=== PATIENT | male | born 1990 | race Caucasian/White ===

== ENCOUNTER 2019-01-17 17:49 | Emergency (ER) | payer SELFPAY ==
[2019-01-17 18:45] LABS: Urine Blood NEGATIVE (NEG); Urine Glucose NEGATIVE (NEG); Urine Protein 1+ (NEG)
[2019-01-17 19:19] LABS: Absolute Lymphocytes (CBC) 1.7 K/uL (0.7-4.9); Basophils % 0.3 % (0-1.3); Eosinophils % 0.5 % (0-4.4); Hematocrit 43.4 % (39.6-49.0); Lymphocytes % 17.4 % (15.3-44.8); MPV 9.4 fL (7.6-11.3); Monocytes % 6.7 % (3.3-12.3); RBC Red Blood Cell Count 4.65 M/uL (4.33-5.43)
[2019-01-17] MEDS ORDERED: NA CHLORIDE 0.9% 1,000 ML ONE (19:38)
[2019-01-17] MEDS ORDERED: MORPHINE 4 MG/ML SYR ONE (19:38)
[2019-01-17] MEDS ORDERED: ONDANSETRON 4 MG/2 ML VIAL ONE (19:38)
[2019-01-17 19:43] LABS: ALT/SGPT 30 U/L (12-78); AST/SGOT 19 U/L (15-37); Alkaline Phosphatase 86 U/L (45-117); BUN Blood Urea Nitrogen 15 mg/dL (7-18); Bicarbonate 29 mmol/L (21-32); Bilirubin Direct < 0.1 mg/dL (0-0.2); Bilirubin Total 0.4 mg/dL (0.2-1.0); Glucose Level 89 mg/dL (74-106); Lipase 150 U/L (73-393); Potassium 3.6 mmol/L (3.5-5.1); Protein, Total 7.4 g/dL (6.4-8.2); Sodium Level 144 mmol/L (136-145)
--- NOTE | 2019-01-17 20:09 | RAD REPORT ---
EXAM DESCRIPTION: CTAbdomen Pelvis W Contrast - 01/17/2019 8:01 pm CLINICAL HISTORY: Abdominal pain. abdominal pain COMPARISON: <Comparisons> TECHNIQUE: Biphasic CT imaging of the abdomen and pelvis was performed with 100 ml non-ionic IV cont rast. All CT scans are performed using dose optimization technique as appropriate and may include automated exposure control or mA/KV adjustment according to patient size. FINDINGS: The lung bases are clear. The liver, spleen, pancreas, adrenal glands and kidneys are within normal limits. No bowel obstruction, free air, free fluid or abscess. A large amount of retained stool is seen in th e colon. The appendix is normal. No evidence of significant lymphadenopathy. No suspicious bony findings. IMPRESSION: Significant fecal retention in the colon.
--- NOTE | 2019-01-17 20:23 | ER ---
Nurse's Notes [facility] Name: Jay Mitchell Age: 28 yrs Sex: Male : 1990 Arrival Date: 01/17/2019 Time: 17:55 Bed 17 Private MD: Diagnosis: Constipation, unspecified;Generalized abdominal pain Presentation: 01/17 17:54 Presenting complaint: Patient states: last summer sharath been having this on and off symptoms of dark urine, constipation, and felt like an hernia on my testicle lately; reports nausea today; denies fever and chills;. Transition of care: patient was not received from another setting of care. Onset of symptoms was January 17, 2019. Risk Assessment: Do you want to hurt yourself or someone else? Patient reports no desire to harm self or others. Initial Sepsis Screen: Does the patient meet any 2 criteria? No. Patient's initial sepsis screen is negative. Does the patient have a suspected source of infection? No. Patient's initial sepsis screen is negative. Care prior to arrival: None. 17:54 Method Of Arrival: Ambulatory 17:54 Acuity: LOUIS 3 Triage Assessment: 18:26 General: Appears in no apparent distress. Behavior is calm, cooperative, appropriate tw2 for age. Pain: Complains of pain in back. Musculoskeletal: Range of motion: intact in all extremities. Historical: - Allergies: 17:57 No Known Allergies; hj - PMHx: 17:57 None; hj - PSHx: 17:57 None; - Immunization history:: Adult Immunizations. - Social history:: Smoking status: . - Ebola Screening: : Patient denies travel to an Ebola-affected area in the 21 days before illness onset. Screenin:27 Abuse screen: Denies threats or abuse. Nutritional screening: No deficits noted. tw2 Tuberculosis screening: No symptoms or risk factors identified. Fall Risk None identified. Assessment: 18:37 General: Appears in no apparent distress. slender, well groomed, Behavior is calm, tw2 cooperative, appropriate for age. Pain: Complains of pain in back. Neuro: Level of Consciousness is awake, alert, obeys commands, Oriented to person, place, time, situation. Cardiovascular: Heart tones S1 S2 Patient's skin is warm and dry. Respiratory: Airway is patent Respiratory effort is even, unlabored, Respiratory pattern is regular, symmetrical, Breath sounds are clear bilaterally. GI: Abdomen is flat, Bowel sounds present X 4 quads. Reports constipation, hemorrhoids, at times. : Reports "dark colored urine and i am an avid water drinker". EENT: No signs and/or symptoms were reported regarding the EENT system. Derm: No signs and/or symptoms reported regarding the dermatologic system. Musculoskeletal: Range of motion: intact in all extremities. 19:36 General: Appears in no apparent distress. comfortable, Behavior is calm, cooperative, ak1 drowsy. Pain: Denies pain. Neuro: No deficits noted. Cardiovascular: No deficits noted. Respiratory: No deficits noted. GI: No signs and/or symptoms were reported involving the gastrointestinal system. : No signs and/or symptoms were reported regarding the genitourinary system. EENT: No signs and/or symptoms were reported regarding the EENT system. Derm: No signs and/or symptoms reported regarding the dermatologic system. Musculoskeletal: No signs and/or symptoms reported regarding the musculoskeletal system. 20:10 Reassessment: pt in CT. ak1 20:43 Reassessment: Patient appears in no apparent distress at this time. No changes from ak1 previously documented assessment. Patient and/or family updated on plan of care and expected duration. Pain level reassessed. Patient is alert, oriented x 3, equal unlabored respirations, skin warm/dry/pink. pt with steady gait at discharge. Patient states feeling better. Patient states symptoms have improved. Vital Signs: 17:57 BP 143 / 80; Pulse 74; Resp 18; Temp 98.3(O); Pulse Ox 100% on R/A; Weight 56.7 kg; hj Height 5 ft. 10 in. (177.80 cm); Pain 7/10; 20:48 BP 138 / 89; Pulse 69; Resp 16; Temp 98.8(O); Pulse Ox 100% on R/A; Pain 0/10; ag4 17:57 Body Mass Index 17.94 (56.70 kg, 177.80 cm) ED Course: 17:55 Patient arrived in ED. mr 17:56 Triage completed. hj 17:57 Arm band placed on right wrist. hj 18:26 Ana Phoenix RN is Primary Nurse. tw2 18:27 Bed in low position. Call light in reach. tw2 18:47 [facility] 18:47 Paul Elena MD is Attending Physician. [facility] 19:18 Radiology exam delayed due to lab results not completed at this time. (BUN/Creatinine). jg6 19:18 Inserted saline lock: 20 gauge in right antecubital area, using aseptic technique. ag4 Blood collected. 20:03 CT Abd/Pelvis - IV Contrast Only In Process Unspecified. EDMS 20:23 Vikas Trevino MD is Referral Physician. [facility] 20:42 No provider procedures requiring assistance completed. IV discontinued, intact, ak1 bleeding controlled, No redness/swelling at site. Pressure dressing applied. Administered Medications: 19:35 Drug: morphine 4 mg Route: IVP; Site: right antecubital; ak1 20:28 Follow up: Response: No adverse reaction; Pain is decreased ak1 19:35 Drug: Zofran 4 mg Route: IVP; Site: right antecubital; ak1 20:28 Follow up: Response: No adverse reaction ak1 19:35 Drug: NS 0.9% 1000 ml Route: IV; Rate: 1 bolus; Site: right antecubital; ak1 20:28 Follow up: IV Status: Completed infusion; IV Intake: 1000ml ak1 Intake: 20:28 IV: 1000ml; Total: 1000ml. ak1 Outcome: 20:22 Discharge ordered by . [facility] 20:43 Discharged to home ambulatory, with friend. ak1 20:43 Condition: good 20:43 Discharge instructions given to patient, friend, Instructed on discharge instructions, follow up and referral plans. no drinking with medication, no driving heavy equipment, medication usage, Demonstrated understanding of instructions, follow-up care, medications, Prescriptions given X 1. 20:50 Patient left the ED. ak1 Signatures: Dispatcher [employer] EDAK Lawson Hood PA PA Laurel Lraa Amber RN RN ak1 Rico Connelly, Ana Simmons RN, RN RN tw2 Agata Johnson jg6 Thang, Johnathon ag4
--- NOTE | 2019-01-17 20:23 | EDPHYS ---
Physician Documentation [facility] Name: Jay Mitchell Age: 28 yrs Sex: Male : 1990 Arrival Date: 01/17/2019 Time: 17:55 Bed 17 Private MD: ED Physician Paul Elena HPI: 01/17 18:49 This 28 yrs old Male presents to ER via Ambulatory with complaints of Back jmm Pain, Urinary Problem, Dizziness. 18:49 The patient presents with abdominal pain that is diffuse. Onset: The symptoms/episode jmm began/occurred gradually, 2 day(s) ago. The symptoms radiate to Associated signs and symptoms: Pertinent negatives: nausea and vomiting, diarrhea. This is a 28 year old male with no chronic medical conditions that presents to the ED with complaints of generalized abdominal pain worsening over the past 2 days. Patient denies fever, denies vomiting, denies diarrhea. Patient states being constipated over the past 3 weeks. Patient also complains of intermittent episodes of epigastric pain over the past year. . Historical: - Allergies: 17:57 No Known Allergies; hj - PMHx: 17:57 None; hj - PSHx: 17:57 None; hj - Immunization history:: Adult Immunizations. - Social history:: Smoking status: . - Ebola Screening: : Patient denies travel to an Ebola-affected area in the 21 days before illness onset. ROS: 18:49 Constitutional: Negative for fever, chills, and weight loss, Cardiovascular: Negative jmm for chest pain, palpitations, and edema, Respiratory: Negative for shortness of breath, cough, wheezing, and pleuritic chest pain. 18:49 Abdomen/GI: Positive for abdominal pain. 18:49 Back: Positive for radiated pain. 18:49 All other systems are negative. Exam: 18:49 Head/Face: atraumatic. Eyes: EOMI, no conjunctival erythema appreciated ENT: Moist jmm Mucus Membranes Neck: Trachea midline, Supple Chest/axilla: Normal chest wall appearance and motion. Cardiovascular: Regular rate and rhythm. No edema appreciated Respiratory: Normal respirations, no respiratory distress appreciated 18:49 Constitutional: The patient appears alert, awake, uncomfortable. 18:49 Abdomen/GI: Inspection: abdomen appears normal, Bowel sounds: normal, Palpation: soft, mild abdominal tenderness, in the epigastric area and left upper quadrant. 18:49 Musculoskeletal/extremity: ROM: intact in all extremities. 18:49 Skin: Appearance: Color: normal in color. 18:49 Neuro: Orientation: is normal, Mentation: is normal, Memory: is normal. 18:49 Psych: Behavior/mood is pleasant, cooperative. Vital Signs: 17:57 BP 143 / 80; Pulse 74; Resp 18; Temp 98.3(O); Pulse Ox 100% on R/A; Weight 56.7 kg; hj Height 5 ft. 10 in. (177.80 cm); Pain 7/10; 20:48 BP 138 / 89; Pulse 69; Resp 16; Temp 98.8(O); Pulse Ox 100% on R/A; Pain 0/10; ag4 17:57 Body Mass Index 17.94 (56.70 kg, 177.80 cm) hj MDM: 18:56 Patient medically screened. [facility] 20:21 Data reviewed: vital signs, nurses notes, lab test result(s), radiologic studies, CT [facility] scan. 20:21 Counseling: I had a detailed discussion with the patient and/or guardian regarding: the [facility] historical points, exam findings, and any diagnostic results supporting the discharge/admit diagnosis, lab results, radiology results, the need for outpatient follow up, to return to the emergency department if symptoms worsen or persist or if there are any questions or concerns that arise at home. ED course: CT imaging reveal significant constipation. Patient advised to begin miralax and advised of the need to follow up with GI for further evaluation. Patient was otherwise given strict return precautions. Patient understood and agrees with the plan of care. . 01/17 18:36 Order name: Urine Dipstick--Ancillary (enter results); Complete Time: 19:20 bd 01/17 18:49 Order name: Basic Metabolic Panel [facility] 01/17 18:49 Order name: CBC with Diff [facility] 01/17 18:49 Order name: Creatinine for Radiology [facility] 01/17 18:49 Order name: Hepatic Function; Complete Time: 19:51 [facility] 01/17 18:49 Order name: Lipase; Complete Time: 19:51 [facility] 01/17 18:51 Order name: Basic Metabolic Panel; Complete Time: 19:51 EDMS 01/17 18:51 Order name: CBC with Automated Diff; Complete Time: 19:26 EDMS 01/17 18:51 Order name: Creatinine (Radiology Only); Complete Time: 19:38 [facility] 18 19:05 Order name: CPK; Complete Time: 19:51 [facility] 19:14 Order name: CT Abd/Pelvis - IV Contrast Only; Complete Time: 20:14 [facility] 01/17 17:59 Order name: Urine Dipstick-Ancillary (obtain specimen); Complete Time: 18:35 01/17 18:49 Order name: IV Saline Lock; Complete Time: 19:16 [facility] 01/17 18:49 Order name: Labs collected and sent; Complete Time: 19:16 [facility] Administered Medications: 19:35 Drug: morphine 4 mg Route: IVP; Site: right antecubital; ak1 20:28 Follow up: Response: No adverse reaction; Pain is decreased ak1 19:35 Drug: Zofran 4 mg Route: IVP; Site: right antecubital; ak1 20:28 Follow up: Response: No adverse reaction ak1 19:35 Drug: NS 0.9% 1000 ml Route: IV; Rate: 1 bolus; Site: right antecubital; ak1 20:28 Follow up: IV Status: Completed infusion; IV Intake: 1000ml ak1 Disposition: 01/18 07:39 Co-signature as Attending Physician, Paul Elena MD I agree with the assessment and tim plan of care. Disposition: 01/17/19 20:22 Discharged to Home. Impression: Constipation, unspecified, Generalized abdominal pain. - Condition is Stable. - Discharge Instructions: Abdominal Pain, Adult, Constipation, Adult. - Prescriptions for Miralax 17 gram/dose Oral - take 1 packet by ORAL route once daily dilute powder in 8 ounces of water or juice; 1 unit. - Medication Reconciliation Form, Thank You Letter, Antibiotic Education, Prescription Opioid Use form. - Follow up: Private Physician; When: 2 - 3 days; Reason: Recheck today's complaints, Continuance of care, Re-evaluation by your physician. Follow up: Vikas Trevino MD; When: 2 - 3 days; Reason: Recheck today's complaints, Continuance of care, Re-evaluation by your physician. Signatures: Dispatcher [employer] Paul Herrera MD MD cha Mickail, Joel, PA PA jmm Krenek June, RN RN ak1 Rico Connelly, RN RN hj Ana Phoenix, RN RN tw2 Corrections: (The following items were deleted from the chart) 01/17 20:23 20:22 01/17/2019 20:22 Discharged to Home. Impression: Constipation, unspecified; fab Generalized abdominal pain. Condition is Stable. Forms are Medication Reconciliation Form, Thank You Letter, Antibiotic Education, Prescription Opioid Use. Follow up: Private Physician; When: 2 - 3 days; Reason: Recheck today's complaints, Continuance of care, Re-evaluation by your physician. [facility] 20:50 20:23 01/17/2019 20:22 Discharged to Home. Impression: Constipation, unspecified; ak1 Generalized abdominal pain. Condition is Stable. Discharge Instructions: Abdominal Pain, Adult, Constipation, Adult. Prescriptions for Miralax 17 gram/dose Oral - take 1 packet by ORAL route once daily dilute powder in 8 ounces of water or juice; 1 unit. and Forms are Medication Reconciliation Form, Thank You Letter, Antibiotic Education, Prescription Opioid Use. Follow up: Private Physician; When: 2 - 3 days; Reason: Recheck today's complaints, Continuance of care, Re-evaluation by your physician. Follow up: Vikas Trevino; When: 2 - 3 days; Reason: Recheck today's complaints, Continuance of care, Re-evaluation by your physician. fab
== END 2019-01-17 20:50 | disposition home or self-care (01) ==
LOC: ER 17:49
DX: K59.00 Constipation, unspecified (principal)
CPT/HCPCS: 36415; 74177; 80048; 80076; 81003; 82550; 83690; 85025; 96361; 96374; 96375; 99284; J2405; J7030; Q9967

== ENCOUNTER 2019-01-19 13:09 | Emergency (ER) | payer SELFPAY ==
[2019-01-19 14:28] LABS: Absolute Lymphocytes (CBC) 1.6 K/uL (0.7-4.9); Basophils % 0.4 % (0-1.3); Eosinophils % 1.5 % (0-4.4); Hematocrit 46.9 % (39.6-49.0); Lymphocytes % 18.6 % (15.3-44.8); Monocytes % 5.5 % (3.3-12.3); RBC Red Blood Cell Count 4.94 M/uL (4.33-5.43)
[2019-01-19] MEDS ORDERED: KETOROLAC 30 MG/ML INJ ONE (14:34)
[2019-01-19] MEDS ORDERED: NA CHLORIDE 0.9% 1,000 ML ONE (14:34)
[2019-01-19 14:45] LABS: ALT/SGPT 30 U/L (12-78); AST/SGOT 18 U/L (15-37); Albumin 4.6 g/dL (3.4-5.0); Alkaline Phosphatase 85 U/L (45-117); BUN Blood Urea Nitrogen 10 mg/dL (7-18); Bicarbonate 29 mmol/L (21-32); Bilirubin Direct 0.2 mg/dL (0-0.2); Bilirubin Total 0.5 mg/dL (0.2-1.0); Glucose Level 88 mg/dL (74-106); Lipase 168 U/L (73-393); Potassium 3.9 mmol/L (3.5-5.1); Protein, Total 8.2 g/dL (6.4-8.2); Sodium Level 142 mmol/L (136-145)
--- NOTE | 2019-01-19 14:58 | RAD REPORT ---
EXAM DESCRIPTION: RAD - Abdomen Single View - 01/19/2019 2:42 pm CLINICAL HISTORY: Abdominal pain COMPARISON: CT study January 17 FINDINGS: Prominent amount of retained stool within the non dilated colon is again noted. Sigmoid co aftab is tortuous and redundant. No small bowel dilatation. No free air or pneumatosis. No suspicious c alcifications are present. No significant bony findings IMPRESSION: Prominent retained stool volume in the colon again noted. No significant change suspected from the January 17 CT study.
[2019-01-19] MEDS ORDERED: ONDANSETRON 4 MG/2 ML VIAL ONE (16:08)
[2019-01-19] MEDS ORDERED: MORPHINE 4 MG/ML SYR ONE (16:08)
[2019-01-19 16:09] LABS: Urine Blood NEGATIVE (NEG); Urine Glucose NEGATIVE (NEG); Urine Protein NEGATIVE (NEG); Urine pH 6.5 (5.0-7.0)
--- NOTE | 2019-01-19 18:42 | EDPHYS ---
Physician Documentation [facility] Name: Jay Mitchell Age: 28 yrs Sex: Male : 1990 Arrival Date: 01/19/2019 Time: 13:10 Bed 30 Private MD: ED Physician Jose Juan Monahan HPI: 01/19 14:50 This 28 yrs old Male presents to ER via Ambulatory with complaints of pm1 Abdominal Pain. 14:50 The patient presents with abdominal pain that is diffuse. Onset: The symptoms/episode pm1 began/occurred today. The symptoms do not radiate. Associated signs and symptoms: Pertinent negatives: diarrhea, dysuria, fever, nausea, vomiting. The symptoms are described as crampy. Modifying factors: The symptoms are alleviated by nothing, the symptoms are aggravated by nothing. Severity of pain: in the emergency department the pain is actually worse. The patient has been recently seen at the [facility] Emergency Department, for similar complaints labs were performed, CT scan was performed, 2 days ago and diagnosed with constipation. 14:50 Patient reports bowel movement today. pm1 Historical: - Allergies: 13:48 No Known Allergies; mg2 - Home Meds: 13:48 None [Active]; mg2 - PMHx: 13:48 None; mg2 - PSHx: 13:48 None; mg2 - Immunization history:: Flu vaccine is not up to date. - Social history:: Smoking status: Patient uses tobacco products, smokes one-half pack cigarettes per day. - Ebola Screening: : No symptoms or risks identified at this time. ROS: 14:50 Constitutional: Negative for fever, chills, and weight loss, Eyes: Negative for injury, pm1 pain, redness, and discharge, ENT: Negative for injury, pain, and discharge, Neck: Negative for injury, pain, and swelling, Cardiovascular: Negative for chest pain, palpitations, and edema, Respiratory: Negative for shortness of breath, cough, wheezing, and pleuritic chest pain, Back: Negative for injury and pain. 14:50 : Negative for injury, bleeding, discharge, and swelling, MS/Extremity: Negative for injury and deformity, Skin: Negative for injury, rash, and discoloration, Neuro: Negative for headache, weakness, numbness, tingling, and seizure. 14:50 Abdomen/GI: Positive for abdominal pain, Negative for nausea, vomiting, and diarrhea, constipation. Exam: 14:50 Constitutional: This is a well developed, well nourished patient who is awake, alert, pm1 and in no acute distress. Head/Face: Normocephalic, atraumatic. Eyes: Pupils equal round and reactive to light, extra-ocular motions intact. Lids and lashes normal. Conjunctiva and sclera are non-icteric and not injected. Cornea within normal limits. Periorbital areas with no swelling, redness, or edema. ENT: Nares patent. No nasal discharge, no septal abnormalities noted. Tympanic membranes are normal and external auditory canals are clear. Oropharynx with no redness, swelling, or masses, exudates, or evidence of obstruction, uvula midline. Mucous membranes moist. Neck: Trachea midline, no thyromegaly or masses palpated, and no cervical lymphadenopathy. Supple, full range of motion without nuchal rigidity, or vertebral point tenderness. No Meningismus. Chest/axilla: Normal chest wall appearance and motion. Nontender with no deformity. No lesions are appreciated. Cardiovascular: Regular rate and rhythm with a normal S1 and S2. No gallops, murmurs, or rubs. Normal PMI, no JVD. No pulse deficits. Respiratory: Lungs have equal breath sounds bilaterally, clear to auscultation and percussion. No rales, rhonchi or wheezes noted. No increased work of breathing, no retractions or nasal flaring. Abdomen/GI: Soft, non-tender, with normal bowel sounds. No distension or tympany. No guarding or rebound. No evidence of tenderness throughout. Back: No spinal tenderness. No costovertebral tenderness. Full range of motion. Skin: Warm, dry with normal turgor. Normal color with no rashes, no lesions, and no evidence of cellulitis. MS/ Extremity: Pulses equal, no cyanosis. Neurovascular intact. Full, normal range of motion. 14:50 Neuro: Orientation: is normal, Motor: is normal, moves all fours. Vital Signs: 13:46 BP 153 / 84; Pulse 84; Resp 18; Temp 98.5; Pulse Ox 99% on R/A; Weight 58.06 kg; Height mg2 5 ft. 10 in. (177.80 cm); Pain 8/10; 15:03 BP 114 / 68; Pulse 67; Resp 18; Pulse Ox 98% on R/A; mg2 16:21 BP 126 / 76; Pulse 70; Resp 18; Temp 98; Pulse Ox 100% on R/A; Pain 0/10; mg2 13:46 Body Mass Index 18.37 (58.06 kg, 177.80 cm) mg2 MDM: 13:35 Patient medically screened. pm1 16:00 Data reviewed: vital signs. Data interpreted: Pulse oximetry: on room air is 98 %. pm1 Interpretation: normal. Counseling: I had a detailed discussion with the patient and/or guardian regarding: the historical points, exam findings, and any diagnostic results supporting the discharge/admit diagnosis, lab results, radiology results, the need for outpatient follow up, to return to the emergency department if symptoms worsen or persist or if there are any questions or concerns that arise at home. 01/19 14:04 Order name: Basic Metabolic Panel; Complete Time: 15:10 pm1 01/19 14:04 Order name: CBC with Diff; Complete Time: 15:10 pm1 01/19 14:04 Order name: Creatinine for Radiology; Complete Time: 15:10 pm1 01/19 14:04 Order name: Hepatic Function; Complete Time: 15:10 pm1 01/19 14:04 Order name: Lipase; Complete Time: 15:10 pm1 01/19 15:20 Order name: Urine Dipstick--Ancillary (enter results) 01/19 14:04 Order name: IV Saline Lock; Complete Time: 14:21 pm1 01/19 14:04 Order name: Labs collected and sent; Complete Time: 14:21 pm1 01/19 14:22 Order name: Abdomen 1 View XRAY; Complete Time: 16:06 pm1 Administered Medications: 14:22 Drug: NS 0.9% 1000 ml Route: IV; Rate: 1000 ml; Site: right antecubital; mg2 16:22 Follow up: Response: No adverse reaction; IV Status: Completed infusion; IV Intake: mg2 1000ml 14:22 Drug: TORadol 30 mg Route: IVP; Site: right antecubital; mg2 15:00 Follow up: Response: No adverse reaction; Pain is unchanged, physician notified mg2 16:08 Drug: morphine 4 mg Route: IVP; Site: right antecubital; mg2 16:21 Follow up: Response: No adverse reaction; Marked relief of symptoms mg2 16:08 Drug: Zofran 4 mg Route: IVP; Site: right antecubital; mg2 16:21 Follow up: Response: No adverse reaction; Marked relief of symptoms mg2 Disposition: 01/20 13:45 Co-signature as Attending Physician, Jose Juan Monahan MD I agree with the assessment and kdr plan of care. Disposition: 01/19/19 16:02 Discharged to Home. Impression: Constipation. - Condition is Stable. - Discharge Instructions: Constipation, Adult. - Prescriptions for Lactulose 10 gram/15 mL Oral Solution - take 30 milliliter by ORAL route once daily; 300 milliliter. - Medication Reconciliation Form, Thank You Letter, Antibiotic Education, Prescription Opioid Use form. - Follow up: Emergency Department; When: As needed; Reason: Worsening of condition. Follow up: Private Physician; When: 2 - 3 days; Reason: Recheck today's complaints, Continuance of care, Re-evaluation by your physician. - Problem is new. - Symptoms have improved. Signatures: Dispatcher [employer] EDMS Jose Juan Monahan MD MD [facility] Haja Lamar NP [employer] pm1 Lamonte Hilario RN RN mg2 Corrections: (The following items were deleted from the chart) 01/19 16:23 16:02 01/19/2019 16:02 Discharged to Home. Impression: Constipation. Condition is mg2 Stable. Forms are Medication Reconciliation Form, Thank You Letter, Antibiotic Education, Prescription Opioid Use. Follow up: Emergency Department; When: As needed; Reason: Worsening of condition. Follow up: Private Physician; When: 2 - 3 days; Reason: Recheck today's complaints, Continuance of care, Re-evaluation by your physician. Problem is new. Symptoms have improved. pm1
--- NOTE | 2019-01-19 18:42 | ER ---
Nurse's Notes [facility] Name: Jay Mitchell Age: 28 yrs Sex: Male : 1990 Arrival Date: 01/19/2019 Time: 13:10 Bed 30 Private MD: Diagnosis: Constipation Presentation: 01/19 13:43 Presenting complaint: Patient states: i was here 2 days ago for the same complaint . mg2 abdominal pain, constipation discharged with miralax. i pooped 3 times today but the pain is worse. sharath been bloated and nauseated. Transition of care: patient was not received from another setting of care. Onset of symptoms was December 2018. Risk Assessment: Do you want to hurt yourself or someone else? Patient reports no desire to harm self or others. Initial Sepsis Screen: Does the patient meet any 2 criteria? No. Patient's initial sepsis screen is negative. Does the patient have a suspected source of infection? No. Patient's initial sepsis screen is negative. Care prior to arrival: None. 13:43 Method Of Arrival: Ambulatory mg2 13:43 Acuity: LOUIS 3 mg2 Triage Assessment: 13:48 General: Appears uncomfortable, Behavior is calm, cooperative. Pain: Complains of pain mg2 in abdomen. EENT: No deficits noted. Neuro: Level of Consciousness is awake, alert, obeys commands, Oriented to person, place, time, situation. Cardiovascular: Capillary refill < 3 seconds. Respiratory: Airway is patent Respiratory effort is even, unlabored, Respiratory pattern is regular, symmetrical. GI: Abdomen is flat, non-distended, Abd is soft and non tender Reports lower abdominal pain, upper abdominal pain, nausea. : No signs and/or symptoms were reported regarding the genitourinary system. Derm: Skin is intact, is healthy with good turgor, Skin is pink, warm \T\ dry. normal. Musculoskeletal: Circulation, motion, and sensation intact. Capillary refill < 3 seconds. Historical: - Allergies: 13:48 No Known Allergies; mg2 - Home Meds: 13:48 None [Active]; mg2 - PMHx: 13:48 None; mg2 - PSHx: 13:48 None; mg2 - Immunization history:: Flu vaccine is not up to date. - Social history:: Smoking status: Patient uses tobacco products, smokes one-half pack cigarettes per day. - Ebola Screening: : No symptoms or risks identified at this time. Screenin:49 Abuse screen: Denies threats or abuse. Denies injuries from another. Nutritional mg2 screening: No deficits noted. Tuberculosis screening: No symptoms or risk factors identified. Fall Risk None identified. Assessment: 13:54 Reassessment: see triage assessment. mg2 15:00 GI: Bowel sounds present X 4 quads. mg2 16:22 Reassessment: Patient states feeling better. Patient states symptoms have improved. mg2 Vital Signs: 13:46 BP 153 / 84; Pulse 84; Resp 18; Temp 98.5; Pulse Ox 99% on R/A; Weight 58.06 kg; Height mg2 5 ft. 10 in. (177.80 cm); Pain 8/10; 15:03 BP 114 / 68; Pulse 67; Resp 18; Pulse Ox 98% on R/A; mg2 16:21 BP 126 / 76; Pulse 70; Resp 18; Temp 98; Pulse Ox 100% on R/A; Pain 0/10; mg2 13:46 Body Mass Index 18.37 (58.06 kg, 177.80 cm) mg2 ED Course: 13:10 Patient arrived in ED. as 13:35 Haja Lamar NP is PHCP. pm1 13:35 Jose Juan Monahan MD is Attending Physician. pm1 13:43 Lamonte Hilario, BORIS is Primary Nurse. mg2 13:46 Triage completed. mg2 13:49 Arm band placed on. mg2 13:49 Patient has correct armband on for positive identification. Pulse ox on. NIBP on. Door mg2 closed. Warm blanket given. 13:50 No provider procedures requiring assistance completed. mg2 14:20 Initial lab(s) drawn, by me, sent to lab. Inserted saline lock: 20 gauge in right lt1 antecubital area, using aseptic technique. 14:38 Patient moved to radiology via wheelchair. bb2 14:42 X-ray completed. Patient tolerated procedure well. Patient moved back from radiology. bb2 14:43 Abdomen 1 View XRAY In Process Unspecified. EDMS 16:20 IV discontinued, intact, bleeding controlled, No redness/swelling at site. Pressure mg2 dressing applied. Administered Medications: 14:22 Drug: NS 0.9% 1000 ml Route: IV; Rate: 1000 ml; Site: right antecubital; mg2 16:22 Follow up: Response: No adverse reaction; IV Status: Completed infusion; IV Intake: mg2 1000ml 14:22 Drug: TORadol 30 mg Route: IVP; Site: right antecubital; mg2 15:00 Follow up: Response: No adverse reaction; Pain is unchanged, physician notified mg2 16:08 Drug: morphine 4 mg Route: IVP; Site: right antecubital; mg2 16:21 Follow up: Response: No adverse reaction; Marked relief of symptoms mg2 16:08 Drug: Zofran 4 mg Route: IVP; Site: right antecubital; mg2 16:21 Follow up: Response: No adverse reaction; Marked relief of symptoms mg2 Intake: 16:22 IV: 1000ml; Total: 1000ml. mg2 Outcome: 16:02 Discharge ordered by . pm1 16:22 Discharged to home ambulatory. mg2 16:22 Condition: stable 16:22 Discharge instructions given to patient, Instructed on discharge instructions, follow up and referral plans. medication usage, Demonstrated understanding of instructions, follow-up care, medications, Prescriptions given X 1. 16:23 Patient left the ED. mg2 Signatures: Dispatcher [employer] Felipa Oliveira Patrick, NP CLIENT TECHNICAL PROFESSIONAL pm1 Yisel Flores bb2 Lamonte Hilario RN RN mg2 Oumou Mai 1
== END 2019-01-19 16:23 | disposition home or self-care (01) ==
LOC: ER 13:09
DX: K59.00 Constipation, unspecified (principal); F17.210 Nicotine dependence, cigarettes, uncomplicated
CPT/HCPCS: 36415; 74018; 80048; 80076; 81003; 83690; 85025; 96361; 96374; 96375; 99284; J2405; J7030

== ENCOUNTER 2023-04-23 09:59 | Emergency (ER) | payer OTHER, SELFPAY ==
--- OUTSIDE RECORDS SUMMARY | 2023-04-23 10:05 | XMS REPORT | Continuity of Care Document ---
:1990 Author Organization [facility] t Address [address] [place] [address] Care Team Providers Name Role Phone THOR ELIZONDO Attending Clinician Unavailable Problems This patient has no known problems. Allergies, Adverse Reactions, Alerts Allergy Allergy Status Severity Reaction(s) Onset Inactive Treating Comm ents Source Name Type Date Date Clinician NO KNOWN Drug Active [facility] Medications This patient has no known medications. Procedures This patient has no known procedures. Encounters Start End Encounter Admission Attending Care Care Encounter Source Date/Time Date/Time Type Type Clinicians Facility Department ID 2023-04-21 2023-04-21 Outpatient [facility] [id number] [place] 08:07:54 08:07:54 [id number] [facility] 2023-03-25 2023-03-25 Outpatient [facility] [id number] [place] 07:58:32 07:58:32 [id number] [facility] 2022-12-14 2022-12-14 Outpatient [facility] [id number] [place] 08:26:13 08:26:13 [id number] [facility] 2022-12-07 2022-12-07 Outpatient [facility] [id number] [place] 13:15:33 13:15:33 [id number] [facility] 2022-11-27 2022-11-27 Outpatient [facility] [id number] [place] 09:53:27 09:53:27 [id number] [facility] 2020-02-17 2020-02-17 Emergency X JAMES ELIZONDO ERT [id number] 05:26:04 05:26:04 [facility] Results Test Description Test Time Test Comments Results Result Comments Source HEPATITIS PANEL, DIAGNOSTIC 2022-12-08 05:38:46 Test Item Value Reference Range Interpretation Comme nts HEPATITIS A TOTAL AB (test REACTIVE NON-REACTIVE A code = 2725) HEPATITIS B SURF AG (test NON-REACTIVE NON-REACTIVE code = 2739) HEP B CORE TOTAL AB (test NON-REACTIVE NON-REACTIVE code = 2729) HEPATITIS B SURFACE AB REACTIVE NON-REACTIVE A (test code = 2737) HEPATITIS C ANTIBODY (test NON-REACTIVE NON-REACTIVE code = 4675) INTERPRETATION HEPATITIS (NOTE) He patitis A serology A: (test code = 2552) consis tent with past exposure or previousvacc ination to hepatitis A vir us. No evidence of current acut ehepatitis A infection. INTERPRETATION HEPATITIS (NOTE) He patitis B serology B: (test code = 58092) consi stent with immunity to hepatitis Bfrom previous hepatitis B vac cination. INTERPRETATION HEPATITIS (NOTE) He patitis C serology shows no C: (test code = 35291) evide nce of exposure to hepatitisC viru s at this time. It can take up to 12 months after exposure tothe hepatitis C virus for ant ibodies to become detectab le in the blood in certain tommie ents. HIV 1/2 4TH GEN, RFLX [id number] 05:38:46 Test Item Value Reference Range Interpretation Comments HIV 1/2 4TH GEN, RFLX CONF (test NON-REACTIVE NON-REACTIVE code = 3514) HEPATITIS A [id number] 05:38:46 Test Item Value Reference Range Interpretation Comments HEPATITIS A IgM NON-REACTIVE NON-REACTIVE UNLESS OTHE RWISE (test code = 2728) INDICATED , ALL TESTING PERFORMED AT [facility], [place]. [address] [place] [address] JAIRO MCCANN DIRECTOR: Renny GONZALEZ [place] NUMBER [id number] CAP ACCREDITATION N O. [id number] COMPREHENSIVE METABOLIC [id number] 03:50:59 Test Item Value Reference Range Interpretation Comments GLUCOSE (test code = 83 MG/DL 70-99 2216) BUN (test code = 15 MG/DL -2207) CREATININE (test 0.95 MG/DL 0.80-1.40 code = 2214) eGFR (2020 CKD-EPI) 110 >60 (test code = 83047) ML/MIN/1.73 CALC BUN/CREAT (test 16 RATIO 01-27 code = 2235) SODIUM (test code = 142 MEQ/L 600-247 1217) POTASSIUM (test code 4.5 MEQ/L 3.5-5.4 = 2228) CHLORIDE (test code 102 MEQ/L 95-107 = 221) CARBON DIOXIDE (test 25 MEQ/L 19-31 code = 2206) CALCIUM (test code = 9.5 MG/DL 8.5-10.5 2208) PROTEIN, TOTAL (test 7.1 G/DL 6.1-8.3 code = 222) ALBUMIN (test code = 4.9 G/DL 3.5-5.2 2200) CALC GLOBULIN (test 2.2 G/DL 1.9-3.7 code = 2240) CALC A/G RATIO (test 2.2 RATIO 1.0-2.6 code = 2234) BILIRUBIN, TOTAL 0.2 MG/DL See_Comment [Automated message] (test code = 2206) The syste [employer] which generated this result transmit seth reference range : <=1.2. The refe rence range was not u sed to interpret th is result as normal/abnormal . ALKALINE PHOSPHATASE 70 U/L 40-112 (test code = 2203) AST (test code = 36 U/L 9-50 2217) ALT (test code = 35 U/L 5-50 2218) CBC W/AUTO DIFF WITH [id number] 01:44:49 Test Item Value Reference Range Interpretation Comments WBC (test code = 10.1 K/UL 3.5-11.0 1001) RBC (test code = 4.17 M/UL 4.50-6.10 L 1002) HEMOGLOBIN (test code 13.2 G/DL 13.5-17.0 L = 1003) HEMATOCRIT (test code 37.8 % 40.0-51.0 L = 1004) MCV (test code = 90.6 fL 80.0-99.0 1005) MCH (test code = 31.7 PG 25.0-33.0 1006) MCHC (test code = 34.9 G/DL 31.0-36.0 1007) RDW (test code = 11.7 % 11.5-15.0 1038) NEUTROPHILS (test 69.8 % code = 1008) LYMPHOCYTES (test 22.3 % code = 1010) MONOCYTES (test code 6.0 % = 1011) EOSINOPHILS (test 1.4 % code = 1012) BASOPHILS (test code 0.3 % = 1013) IMMATURE GRANULOCYTES 0.2 % (test code = 1036) NUCLEATED RBCS (test 0.0 /100 WBC'S See_Comment [Aut omated code = 1065) message] The sy stem which generated this result transmitted reference range : 0.0. The refere nce range was not u sed to interpret th is result as normal/abnormal . PLATELET COUNT (test 208 K/UL 130-400 code = 1015) ABSOLUTE NEUTROPHILS 7.03 K/UL 1.50-7.50 (test code = 1066) ABSOLUTE LYMPHOCYTES 2.24 K/UL 1.00-4.00 (test code = 1067) ABSOLUTE MONOCYTES 0.60 K/UL 0.20-1.00 (test code = 1068) ABSOLUTE EOSINOPHILS 0.14 K/UL 0.00-0.50 (test code = 1040) ABSOLUTE BASOPHILS 0.03 K/UL 0.00-0.20 (test code = 1069) ABS IMMATURE 0.02 K/UL 0.00-0.10 GRANULOCYTES (test code = 1020) ABS NUCLEATED RBCS 0.00 K/UL 0.00-0.11 (test code = 53777)
[2023-04-23] MEDS ORDERED: KETOROLAC 30 MG/ML INJ ONE (10:37)
[2023-04-23] MEDS ORDERED: DIAZEPAM 5 MG TABLET ONE (10:37)
--- NOTE | 2023-04-23 10:45 | RAD REPORT ---
EXAM DESCRIPTION: CT - Spine Lumbar Wo Con - 04/23/2023 10:37 am CLINICAL HISTORY: Pain;Radiculopathy COMPARISON: No comparisons TECHNIQUE: Axial noncontrast CT imaging of the lumbar spine was performed with coronal and sagittal re-formatted images. All CT scans are performed using dose optimization technique as appropriate and may include automated exposure control or mA/KV adjustment according to patient size. FINDINGS: No acute lumbar spine fracture seen. No aggressive marrow pattern or malalignment. Probabl e Schmorl's nodes at L1 and L2. Paraspinal tissues are normal in thickness. No paraspinal abscess or hematoma seen. Intervertebral disc disease assessment is inherently limited by CT. Within these limitations, no high -grade canal stenosis suspected. Mild facet hypertrophy L5-S1 results in bilateral neural foraminal narrowing that is mild to moderate . Mild neural foraminal narrowing noted at L4-5. IMPRESSION: No acute fracture. Neural foraminal narrowing noted at L4-5 and L5-S1 as result of facet hypertrophy. Neither level is severe. Consider MRI follow-up for assessment of disc disease if clinically desired.
--- NOTE | 2023-04-23 11:06 | EDPHYS ---
Physician Documentation [facility] Name: Jay Mitchell Age: 32 yrs Sex: Male : 1990 Arrival Date: 04/23/2023 Time: 09:59 Bed 7 Private MD: ED Physician Raymond Howell HPI: 04/23 10:26 This 32 yrs old Male presents to ER via Ambulatory with complaints of Low Back Pain. snw 10:26 The patient presents with pain that is acute, with no known mechanism of injury. The snw symptoms are located in the low back. The pain radiates to the right leg and left leg. The problem was sustained from unknown cause. Onset: The symptoms/episode began/occurred acutely. Associated signs and symptoms: Pertinent positives: nausea. Severity of symptoms: At their worst the symptoms were moderate, severe. The patient has experienced a previous episode, s/p injury years ago. Historical: - Allergies: 10:23 No Known Allergies; mb9 - Home Meds: 10:23 None [Active]; mb9 - PMHx: 10:23 None; mb9 - PSHx: 10:23 None; mb9 - Immunization history:: Adult Immunizations up to date. - Social history:: Smoking status: Patient reports the use of cigarette tobacco products, smokes one-half pack cigarettes per day. ROS: 10:25 Constitutional: Negative for fever, chills, and weight loss, Eyes: Negative for injury, snw pain, redness, and discharge, ENT: Negative for injury, pain, and discharge, Neck: Negative for injury, pain, and swelling, Cardiovascular: Negative for chest pain, palpitations, and edema, Respiratory: Negative for shortness of breath, cough, wheezing, and pleuritic chest pain, 10:25 : Negative for injury, bleeding, discharge, and swelling, MS/Extremity: Negative for injury and deformity, Skin: Negative for injury, rash, and discoloration, Neuro: Negative for headache, weakness, numbness, tingling, and seizure, Psych: Negative for depression, anxiety, suicide ideation, homicidal ideation, and hallucinations, 10:25 Abdomen/GI: Positive for nausea, 10:25 Back: Positive for pain at rest, pain with movement, radiated pain, of the low back area, shoots down both legs, Exam: 10:24 Constitutional: This is a well developed, well nourished patient who is awake, alert, snw and in no acute distress. Head/Face: Normocephalic, atraumatic. Eyes: Pupils equal round and reactive to light, extra-ocular motions intact. Lids and lashes normal. Conjunctiva and sclera are non-icteric and not injected. Cornea within normal limits. Periorbital areas with no swelling, redness, or edema. ENT: Nares patent. No nasal discharge, no septal abnormalities noted. Tympanic membranes are normal and external auditory canals are clear. Oropharynx with no redness, swelling, or masses, exudates, or evidence of obstruction, uvula midline. Mucous membranes moist. Neck: Trachea midline, no thyromegaly or masses palpated, and no cervical lymphadenopathy. Supple, full range of motion without nuchal rigidity, or vertebral point tenderness. No Meningismus. Chest/axilla: Normal chest wall appearance and motion. Nontender with no deformity. No lesions are appreciated. Cardiovascular: Regular rate and rhythm with a normal S1 and S2. No gallops, murmurs, or rubs. Normal PMI, no JVD. No pulse deficits. Respiratory: Lungs have equal breath sounds bilaterally, clear to auscultation and percussion. No rales, rhonchi or wheezes noted. No increased work of breathing, no retractions or nasal flaring. Abdomen/GI: Soft, non-tender, with normal bowel sounds. No distension or tympany. No guarding or rebound. No evidence of tenderness throughout. Skin: Warm, mild diaphoresis with normal turgor. Normal color with no rashes, no lesions, and no evidence of cellulitis. MS/ Extremity: Pulses equal, no cyanosis. Neurovascular intact. Full, normal range of motion. Neuro: Awake and alert, GCS 15, oriented to person, place, time, and situation. Cranial nerves II-XII grossly intact. Motor strength 5/5 in all extremities. Sensory grossly intact. Cerebellar exam normal. Normal gait. Psych: Awake, alert, with orientation to person, place and time. Behavior, mood, and affect are within normal limits. 10:24 Back: pain, that is moderate, ROM is painful, normal spinal alignment noted, muscle spasm, is appreciated in the low back area, Vital Signs: 10:21 BP 134 / 64; Pulse 86; Resp 16; Temp 98; Pulse Ox 100% on R/A; Weight 60.33 kg; Height mb9 5 ft. 10 in. ; Pain 8/10; 11:14 BP 122 / 84; Pulse 74; Resp 16; Pulse Ox 100% on R/A; mb9 10:21 Body Mass Index 19.08 (60.33 kg, 177.8 cm) mb9 10:21 Pain Scale: Adult mb9 MDM: 10:08 Patient medically screened. snw 11:10 Differential diagnosis: arthritis, strain, sciatica, Herniated disc. Data reviewed: snw vital signs, nurses notes, radiologic studies, CT scan. I considered the following discharge prescriptions or medication management in the emergency department Medications were administered in the Emergency Department. See MAR. Counseling: I had a detailed discussion with the patient and/or guardian regarding the historical points, exam findings, and any diagnostic results supporting the discharge/admit diagnosis, radiology results, the need for outpatient follow up, for definitive care, to return to the emergency department if symptoms worsen or persist or if there are any questions or concerns that arise at home. Response to treatment: the patient's symptoms have markedly improved after treatment. Special discussion: I have referred the patient to see his PCP for further evaluation of high blood pressure. Based on the history and exam findings, there is no indication for further emergent testing or inpatient evaluation. I discussed with the patient/guardian the need to see the back specialist for further evaluation of the symptoms. I discussed with the patient/guardian the need to see the primary care provider for further evaluation of the symptoms. 04/23 10:23 Order name: CT Lumbar Spine Wo Con; Complete Time: 10:46 snw Administered Medications: 10:33 Drug: Ketorolac IM 30 mg IM once Route: IM; Site: right deltoid; jl7 11:14 Follow up: Response: No adverse reaction mb9 10:33 Drug: Diazepam PO 5 mg PO once Route: PO; jl7 11:14 Follow up: Response: No adverse reaction mb9 Disposition: 13:55 Co-signature as Attending Physician, Raymond Howell MD I reviewed the patient's care rn provided by the Advanced Practice Provider and agree with the diagnosis and treatment plan. Disposition Summary: 04/23/23 11:05 Discharge Ordered Notes: Location: Home snw Condition: Stable snw Diagnosis - Low back pain snw - Radiculopathy, lumbar region snw Followup: snw - With: Emergency Department - When: As needed - Reason: Worsening of condition Followup: snw - With: Private Physician - When: 2 - 3 days - Reason: Recheck today's complaints, Continuance of care, Re-evaluation by your physician Discharge Instructions: - Discharge Summary Sheet snw - Acute Back Pain, Adult snw - Lumbosacral Radiculopathy snw - Back Injury Prevention, [id number] snw - How to Use Cold Therapy snw - Heat Therapy snw - Radicular Pain snw Forms: - Work release form snw - Medication Reconciliation Form snw - Thank You Letter snw - Antibiotic Education snw - Prescription Opioid Use snw - Patient Portal Instructions snw - Leadership Thank You Letter snw Prescriptions: - Diclofenac Sodium 75 mg Oral Tablet Sustained Release - take 1 tablet ORAL route 2 times per day; 30 tablet; Refills: 0, Product snw Selection Permitted - orphenadrine citrate 100 mg Oral Tablet Sustained Release - take 1 tablet ORAL route 2 times per day As needed; 20 tablet; Refills: 0, snw Product Selection Permitted Signatures: Dispatcher [employer] EDMS Analy Reza, OIL WELL SERVICE OPERATOR-C OIL WELL SERVICE OPERATOR-Csnw Raymond Howell MD MD rn Leal, Jahala RN RN jl7 Laurel Weaver RN RN mb9
--- NOTE | 2023-04-23 11:06 | ER ---
Nurse's Notes [facility] Name: Jay Mitchell Age: 32 yrs Sex: Male : 1990 Arrival Date: 04/23/2023 Time: 09:59 Bed 7 Private MD: Diagnosis: Low back pain;Radiculopathy, lumbar region Presentation: 04/23 10:21 Chief complaint: Patient states: "I started having severe bilateral lower back mb9 yesterday while sitting. It feels like my spine is cramping. I hurt my back last year while moving and it feels like that. The pain is making me nauseous." Pt denies burning with urination. Coronavirus screen: Vaccine status: Patient reports receiving the 2nd dose of the covid vaccine. Ebola Screen: No symptoms or risks identified at this time. Initial Sepsis Screen: Does the patient meet any 2 criteria? No. Patient's initial sepsis screen is negative. Does the patient have a suspected source of infection? No. Patient's initial sepsis screen is negative. Risk Assessment: Do you want to hurt yourself or someone else? Patient reports no desire to harm self or others. Onset of symptoms was April 23, 2023. 10:21 Method Of Arrival: Ambulatory mb9 10:24 Acuity: LOUIS 4 mb9 Triage Assessment: 10:24 General: Appears in no apparent distress. Behavior is calm, cooperative. Pain: mb9 Complains of pain in back Pain radiates to right leg and left leg Pain currently is 8 out of 10 on a pain scale. Quality of pain is described as sharp, shooting, Pain began 1 day ago. Is intermittent. EENT: No signs and/or symptoms were reported regarding the EENT system. Neuro: Phelps Agitation-Sedation Scale (RASS): 0 - Alert and Calm Level of Consciousness is awake, alert, obeys commands, Oriented to person, place, time, situation, Appropriate for age. Cardiovascular: Patient's skin is warm and dry. Respiratory: Airway is patent Respiratory effort is even, unlabored, Respiratory pattern is regular, symmetrical. GI: Abdomen is flat, non-distended, Reports nausea. : Denies burning with urination. Derm: Skin is pink, warm \\T\\ dry. Musculoskeletal: Range of motion: intact in all extremities. Historical: - Allergies: 10:23 No Known Allergies; mb9 - Home Meds: 10:23 None [Active]; mb9 - PMHx: 10:23 None; mb9 - PSHx: 10:23 None; mb9 - Immunization history:: Adult Immunizations up to date. - Social history:: Smoking status: Patient reports the use of cigarette tobacco products, smokes one-half pack cigarettes per day. Screenin:25 [facility] ED Fall Risk Assessment (Adult) History of falling in the last 3 months, mb9 including since admission No falls in past 3 months (0 pts) Confusion or Disorientation No (0 pts) Intoxicated or Sedated No (0 pts) Impaired Gait No (0 pts) Mobility Assist Device Used No (0 pt) Altered Elimination No (0 pt) Score/Fall Risk Level 0 - 2 = Low Risk Oriented to surroundings, Maintained a safe environment, Educated pt \\T\\ family on fall prevention, incl call for assistance when getting out of bed. Abuse screen: Denies threats or abuse. Nutritional screening: No deficits noted. Tuberculosis screening: No symptoms or risk factors identified. Assessment: 10:25 Reassessment: see triage assessment. mb9 11:14 Reassessment: Patient and/or family updated on plan of care and expected duration. Pain mb9 level reassessed. Patient is alert, oriented x 3, equal unlabored respirations, skin warm/dry/pink. Patient states feeling better. Patient states symptoms have improved. Vital Signs: 10:21 BP 134 / 64; Pulse 86; Resp 16; Temp 98; Pulse Ox 100% on R/A; Weight 60.33 kg; Height mb9 5 ft. 10 in. ; Pain 8/10; 11:14 BP 122 / 84; Pulse 74; Resp 16; Pulse Ox 100% on R/A; mb9 10:21 Body Mass Index 19.08 (60.33 kg, 177.8 cm) mb9 10:21 Pain Scale: Adult mb9 ED Course: 10:00 Patient arrived in ED. rg4 10:08 Analy Reza FNP-C is PHCP. snw 10:08 Raymond Howell MD is Attending Physician. snw 10:16 Laurel Weaver RN is Primary Nurse. mb9 10:21 Arm band placed on. mb9 10:23 Triage completed. mb9 10:25 Bed in low position. Call light in reach. Side rails up X 1. Client placed on mb9 continuous cardiac and pulse oximetry monitoring. NIBP monitoring applied. Door closed. Noise minimized. Warm blanket given. 10:25 No provider procedures requiring assistance completed. mb9 10:39 CT Lumbar Spine Wo Con In Process Unspecified. EDMS 11:14 Patient did not have IV access during this emergency room visit. mb9 Administered Medications: 10:33 Drug: Ketorolac IM 30 mg IM once Route: IM; Site: right deltoid; jl7 11:14 Follow up: Response: No adverse reaction mb9 10:33 Drug: Diazepam PO 5 mg PO once Route: PO; jl7 11:14 Follow up: Response: No adverse reaction mb9 Medication: 10:25 VIS not applicable for this client. mb9 Outcome: 11:05 Discharge ordered by . main 11:14 Discharged to home ambulatory, mb9 11:14 Condition: stable 11:14 Discharge instructions given to patient, Instructed on discharge instructions, follow up and referral plans. Demonstrated understanding of instructions, follow-up care, medications, Prescriptions given X 2, 11:15 Patient left the ED. mb9 Signatures: Dispatcher [employer] EDMS Analy Reza, CENTER REP-C CENTER REP-CsnHannah Patterson rg4 Radha Browning RN RN jl7 Laurel Weaver RN RN mb9 Corrections: (The following items were deleted from the chart) 10:24 10:21 Acuity: LOUIS 2 mb9 mb9
[2023-04-23 11:21] VITALS: TEMP 98; O2SAT 100
[2023-04-23 11:22] VITALS: BP 122/84
== END 2023-04-23 11:15 | disposition home or self-care (01) ==
LOC: ER 09:59
DX: M54.16 Radiculopathy, lumbar region (principal); F17.210 Nicotine dependence, cigarettes, uncomplicated
CPT/HCPCS: 72131; 96372; 99284